=== PATIENT | male | born 1965 | race Caucasian/White ===

== ENCOUNTER 2023-03-05 01:21 | Observation (INO) | payer BC ==
--- NOTE | 2023-03-05 01:27 | ED ---
Recheck HPI - General Stated Complaint: Abdominal pain Time Seen by Provider: 03/05/23 01:24 Source: RN notes reviewed, old records reviewed Mode of arrival: EMS Limitations: no limitations - History of Present Illness Initial Comments: This is a 58-year-old male to the emergency department for evaluation of severe abdominal pain. Patient Dese for evaluation of abdominal pain here in the emergency room with nausea vomiting persistent nausea vomiting here, patient has no fever, no chest pain or shortness of breath, patient is accepted in transfer from outside facility for chronic and uncontrolled abdominal pain secondary to pancreatitis MD Complaint: abnormal lab -: unknown Returns Today for: Called Because of Abnormal Lab/Test, persistent/worsening pain related to initial visit Symptoms Since Prior Visit: worsening pain Associated Symptoms: none, abdominal pain Treatments Prior to Arrival: Given Pain Meds on - Related Data Home Medications Medication Instructions Recorded Confirmed Doxazosin [Cardura] 1 mg PO HS 03/05/23 03/05/23 HYDROcodone/APAP 7.5-325MG [[place] 1 tab PO Q6HR PRN 03/05/23 03/05/23 7.5-325] Lactulose [Cephulac] 20 gm PO TID PRN 03/05/23 03/05/23 Loratadine [Claritin] 10 mg PO DAILY 03/05/23 03/05/23 Ondansetron Odt [Zofran Odt] 4 mg PO Q8HR PRN 03/05/23 03/05/23 Pantoprazole [Protonix] 40 mg PO DAILY 03/05/23 03/05/23 amLODIPine [Norvasc] 5 mg PO DAILY 03/05/23 03/05/23 fentaNYL 50MCG/HR PATCH [Duragesic 1 patch TRANSDERM Q72H 03/05/23 03/05/23 50MCG/HR] traZODone HCL 100 mg PO HS 03/05/23 03/05/23 Allergies Allergy/AdvReac Type Severity Reaction Status Date / Time No Known Allergies Allergy Verified 03/05/23 07:26 Review of Systems ROS Statement: Those systems with pertinent positive or pertinent negative responses have been documented in the HPI. ROS Other: All systems not noted in ROS Statement are negative. General Exam General appearance: alert, in no apparent distress, anxious Head exam: Present: atraumatic, normocephalic, normal inspection Eye exam: Present: normal appearance, PERRL, EOMI. Absent: scleral icterus, conjunctival injection, periorbital swelling ENT exam: Present: normal exam, mucous membranes moist Neck exam: Present: normal inspection. Absent: tenderness, meningismus, lymphadenopathy Respiratory exam: Present: normal lung sounds bilaterally. Absent: respiratory distress, wheezes, rales, rhonchi, stridor Cardiovascular Exam: Present: regular rate, normal rhythm, normal heart sounds. Absent: systolic murmur, diastolic murmur, rubs, gallop, clicks GI/Abdominal exam: Present: soft, normal bowel sounds. Absent: distended, tenderness, guarding, rebound, rigid Extremities exam: Present: normal inspection, full ROM, normal capillary refill. Absent: tenderness, pedal edema, joint swelling, calf tenderness Back exam: Present: normal inspection Neurological exam: Present: alert, oriented X3, CN II-XII intact Psychiatric exam: Present: normal affect, normal mood Skin exam: Present: warm, dry, intact, normal color. Absent: rash Course Vital Signs 03/05/23 03/05/23 03/05/23 01:22 01:37 02:00 Temperature 97.6 F Pulse Rate 47 L 48 L 50 L Pulse Rate [ Pulse Oximetery ] Respiratory 16 14 14 Rate Blood Pressure 178/86 178/86 166/94 Blood Pressure [Right Arm Supine] O2 Sat by Pulse 96 95 97 Oximetry 03/05/23 03/05/23 03/05/23 04:00 05:00 06:00 Temperature Pulse Rate 48 L 45 L 42 L Pulse Rate [ Pulse Oximetery ] Respiratory 14 14 12 Rate Blood Pressure 176/96 171/95 159/85 Blood Pressure [Right Arm Supine] O2 Sat by Pulse 100 97 97 Oximetry 03/05/23 03/05/23 03/05/23 07:55 09:28 09:45 Temperature 97.6 F Pulse Rate 57 L Pulse Rate [ 43 L Pulse Oximetery ] Respiratory 16 18 Rate Blood Pressure 138/71 Blood Pressure 166/77 [Right Arm Supine] O2 Sat by Pulse 98 97 Oximetry - Reevaluation(s) Reevaluation #1: 03/05/23 01:59 Medical records reviewed Transfer paperwork is reviewed Reevaluation #2: 03/05/23 01:59 Patient has adequate pain control Reevaluation #3: 03/05/23 01:59 Patient informed results questions answered Reevaluation #4: 03/05/23 01:58 Was pt. sent in by a medical professional or institution ([facility], [facility], urgent care, hospital, or snf...) When possible be specific @ -no Did you speak to anyone other than the patient for history (EMS, parent, family, police, friend...)? What history was obtained from this source @ -no Did you review nursing and triage notes (agree or disagree)? Why? @ -agree Are old charts reviewed (outside hosp., previous admission, EMS record, old EKG, old radiological studies, urgent care reports/EKG's, snf records)? Report findings @ -yes Differential Diagnosis (chest pain, altered mental status, abdominal pain women, abdominal pain men, vaginal bleeding, weakness, fever, dyspnea, syncope, headache, dizziness, GI bleed, back pain, seizure, CVA, palpatations, mental health, musculoskeletal)? @ -prior EKG interpreted by me (3pts min.). @ -yes X-rays interpreted by me (1pt min.). @ -no CT interpreted by me (1pt min.). @ -no U/S interpreted by me (1pt. min.). @ -no What testing was considered but not performed or refused? (CT, X-rays, U/S, labs)? Why? @ -none What meds were considered but not given or refused? Why? @ -none Did you discuss the management of the patient with other professionals (professionals i.e. [facility], [employer], lab, RT, psych nurse, director social, ornamenter hand, teacher, house officer, supervisor case loading)? Give summary @ -no Was smoking cessation discussed for >3mins.? @ -no Was critical care preformed (if so, how long)? @ -no Were there social determinants of health that impacted care today? How? (Homelessness, low income, unemployed, alcoholism, drug addiction, transportation, low edu. Level, literacy, decrease access to med. care, custodial, rehab)? @ -none Was there de-escalation of care discussed even if they declined (Discuss DNR or withdrawal of care, Hospice)? DNR status @ -no What co-morbidities impacted this encounter? (DM, HTN, Smoking, COPD, CAD, Cancer, CVA, ARF, Chemo, Hep., AIDS, mental health diagnosis, sleep apnea, morbid obesity)? @ -none Was patient admitted / discharged? Hospital course, mention meds given and route, prescriptions, significant lab abnormalities, going to OR and other pertinent info. @ - 58 male to the emergency department for evaluation of severe abdominal pain. Patient is transferred for inpatient evaluation regarding pancreatitis history of pancreatitis secondary to alcoholism, patient does have CT positive for pancreatic pseudocyst unchanged, patient has persistent abdominal pain here in the urine will admit for pain control Admitted Undiagnosed new problem with uncertain prognosis? @ -no Drug Therapy requiring intensive monitoring for toxicity (Heparin, Nitro, Insulin, Cardizem)? @ -no Were any procedures done? @ -no Diagnosis/symptom? @ -Acute pancreatitis Acute, or Chronic, or Acute on Chronic? @ -Acute Uncomplicated (without systemic symptoms) or Complicated (systemic symptoms)? @ -Complicated Side effects of treatment? @ -no Exacerbation, Progression, or Severe Exacerbation? @ -exacerbation Poses a threat to life or bodily function? How? (Chest pain, [place], [place], pneumonia, PE, COPD, DKA, ARF, appy, cholecystitis, CVA, Diverticulitis, Homicidal, Suicidal, threat to staff... and all critical care pts) @ -yes with severe abdominal pain and pancreatitis Reevaluation #5: 03/05/23 01:59 Differential Abdominal Pain Men: Appendicitis, cholecystitis, diverticulosis, ischemic bowel, pancreatitis, hepatitis, UTI, gastroenteritis, AAA, incarcerated hernia, bowel obstruction, constipation, inflammatory bowel, hepatitis, peptic ulcer disease, splenic infarction, perforated viscus, testicular torsion, this is not meant to be an all-inclusive list - Consultations Consultation #1: spoke w the [facility] who agrees to admit this patient Medical Decision Making - Medical Decision Making 58 male to the emergency department for evaluation of severe abdominal pain. Patient is transferred for inpatient evaluation regarding pancreatitis history of pancreatitis secondary to alcoholism, patient does have CT positive for pancreatic pseudocyst unchanged, patient has persistent abdominal pain here in the urine will admit for pain control - Lab Data Result diagrams: 03/05/23 02:32 03/05/23 02:32 - EKG Data -: EKG Interpreted by Me (EKG is sinus bradycardia 43 [place] 165 QRS 129 QTC 447) - Radiology Data Radiology results: pending (Ultrasound gallbladder is pending), report reviewed (Outside CT does show pancreatic pseudocysts and chronic pancreatitis) Disposition Clinical Impression: Abdominal pain, Pancreatitis, Recurrent pancreatitis Disposition: ADMITTED IP TO THIS [facility] Condition: Fair Is patient prescribed a controlled substance at d/c from ED?: No Time of Disposition: 02:00
[2023-03-05] MEDS ORDERED: MORPHINE SULFATE 4 MG/ML SYRINGE IV PRN (01:59)
[2023-03-05] MEDS ORDERED: MORPHINE SULFATE 4 MG/ML SYRINGE IV STA (01:59)
[2023-03-05] MEDS ORDERED: ONDANSETRON 4 MG/2 ML VIAL IVP STA (01:59)
[2023-03-05] MEDS ORDERED: SODIUM CHLORIDE 0.9% 1,000 ML IV STA ×2 (01:59)
[2023-03-05] MEDS ORDERED: NALOXONE 0.4 MG/ML 1 ML VIAL IV PRN (01:59)
[2023-03-05] MEDS ORDERED: ONDANSETRON 4 MG/2 ML VIAL IVP PRN (01:59)
[2023-03-05] MEDS: SODIUM CHLORIDE 0.9% 1,000 ML IV SCH ×2 (02:10→13:51)
[2023-03-05 02:51] LABS: Anisocytosis Slight; Basophils % (A) 0 %; Eosinophils # (A) 0.2 k/uL (0-0.7); Eosinophils % (A) 3 %; HGB 16.1 gm/dL (13.0-17.5); Lymphocytes # (A) 1.1 k/uL (1.0-4.8); Lymphocytes % (A) 15 %; MCH 26.8 pg (25.0-35.0); MCHC 32.1 g/dL (31.0-37.0); MCV 83.5 fL (80.0-100.0); Mean Platelet Volume 8.4; Monocytes # (A) 0.6 k/uL (0-1.0); Monocytes % (A) 8 %; Neutrophils # (A) 5.3 k/uL (1.3-7.7); Neutrophils % (A) 70 %; Platelet Count 304 k/uL (150-450); RBC 5.99 m/uL (4.30-5.90); RDW 17.8 % (11.5-15.5); WBC 7.6 k/uL (3.8-10.6)
[2023-03-05 02:58] LABS: INR 1.1 (<1.2); Partial Thromboplastin Time 27.4 sec (22.0-30.0); Prothrombin Time 12.2 sec (10.0-12.5)
[2023-03-05 03:12] LABS: ALT 31 U/L (4-49); AST 40 U/L (17-59); African American GFR (CKD) >90 (>60 ml/min/1.73 sqM); Albumin 3.5 g/dL (3.5-5.0); Alkaline Phosphatase 164 U/L (38-126); Anion Gap 11 mmol/L; Blood Urea Nitrogen 12 mg/dL (9-20); Calcium 8.8 mg/dL (8.4-10.2); Carbon Dioxide 23 mmol/L (22-30); Chloride 104 mmol/L (98-107); Glucose 98 mg/dL (74-99); Magnesium 1.7 mg/dL (1.6-2.3); Non-African American GFR(CKD) 85 (>60 ml/min/1.73 sqM); Phosphorus 3.5 mg/dL (2.5-4.5); Sodium 138 mmol/L (137-145); Total Bilirubin 0.5 mg/dL (0.2-1.3); Total Protein 6.3 g/dL (6.3-8.2)
[2023-03-05 03:20] LABS: NT-Pro-B-Type Natriuretic Pept 401 pg/mL
--- NOTE | 2023-03-05 07:56 | US ---
EXAMINATION TYPE: US gallbladder DATE OF EXAM: 03/05/2023 COMPARISON: NONE CLINICAL INDICATION: Male, 58 years old with history of pain; Abdominal pain, pancreatitis TECHNIQUE: Multiple sonographic images of the right upper quadrant are obtained. FINDINGS: EXAM MEASUREMENTS: Liver Length: 19.0 cm Gallbladder Wall: 0.3 cm CBD: 0.8 cm Right Kidney: 11.8 x 5.1 x 4.8 cm Pancreas: anechoic areas noted within area of pancreas = 5.6 x 6.0 x 5.0cm and 5.7 x 4.3 x 4.7cm Liver: intrahepatic ducts appear dilated Gallbladder: upper limits of normal in size = 10.0 cm, low echoes layering dependently suggestive of biliary debris. Evidence for sonographic Oneill's sign: no CBD: dilated Right Kidney: no evidence of hydronephrosis IMPRESSION: 1. Distended gallbladder measuring up to 10 cm. There suggestive of layering biliary debris. No evid ence for acute cholecystitis. 2. Pancreatic cysts which could represent sequela of pancreatitis.
[2023-03-05] MEDS: PANTOPRAZOLE 40 MG/10 ML VIAL IV SCH (07:58)
[2023-03-05] MEDS ORDERED: ACETAMINOPHEN TAB 325 MG TAB PO PRN (09:16)
[2023-03-05] MEDS ORDERED: MAG HYDROX/AL HYDROX/SIMETH 30 ML CUP PO PRN (09:16)
[2023-03-05] MEDS ORDERED: MORPHINE SULFATE 2 MG/ML SYRINGE IV PRN (09:19)
[2023-03-05] MEDS: amLODIPine 5 MG TAB PO SCH (09:29)
[2023-03-05] MEDS: LORATADINE 10 MG TAB PO SCH (09:29)
[2023-03-05] MEDS ORDERED: PANTOPRAZOLE 40 MG TABLET PO SCH (09:30)
--- NOTE | 2023-03-05 11:53 | P.GSCN ---
History of Present Illness Consult date: 03/05/23 History of present illness: CHIEF COMPLAINT: abdominal pain HISTORY OF PRESENT ILLNESS: This is a 4-year-old male who presents with complaints of severe abdominal pain in the epigastric area and right upper quadrant area that radiates to the upper back over the last month. He reports that the pain increased yesterday. Patient has a known history of chronic pancreatitis secondary to alcoholism. Also history of pancreatic pseudocyst. Patient reports that his last alcoholic beverage was over 10 months ago. He reports having a recent hospitalization last month for pancreatitis. Patient reports that symptoms improve and then a few days later. He denies any nausea or vomiting. Denies any fever chills or sweats. He was initially at outside hospital where he had a computed tomography scan that had shown evidence of pancreatic pseudocyst unchanged and pancreatitis per ER charting. CAT scan is not available to me. Patient transferred to [facility] for surgical evaluation and GI evaluation. Patient had gallbladder ultrasound completed the head showed distended gallbladder measuring up to 10 cm. There is suggestive of layering biliary debris. No evidence for acute cholecystitis. PAST MEDICAL HISTORY: History of kidney cancer with left nephrectomy. History of lung cancer last chemotherapy 2 months ago, hypertension PAST SURGICAL HISTORY: Left nephrectomy MEDICATIONS: See below ALLERGIES: See below SOCIAL HISTORY: No illicit drug use. REVIEW OF SYSTEMS: CONSTITUTIONAL: Denies fever or chills. HEENT: Denies blurred vision, vision changes, or eye pain. Denies hemoptysis CARDIOVASCULAR: Denies chest pain or pressure. RESPIRATORY: No shortness of breath. GASTROINTESTINAL: See HPI for pertinent findings HEMATOLOGIC: Denies bleeding disorders. GENITOURINARY: Denies any blood in urine or increased urinary frequency. SKIN: Denies pruitis. Denies rash. PHYSICAL EXAM: VITAL SIGNS: Reviewed GENERAL: Well-developed in no acute distress. HEENT: No sclera icterus. Extraocular movements grossly intact. Moist buccal mucosa. Head is atraumatic, normocephalic. No nasal drainage. ABDOMEN: Soft. Nondistended. Tenderness to palpation epigastric and right upper quadrant area NEUROLOGIC: Alert and oriented. Cranial nerves II through XII grossly intact. LABORATORY DATA: WBC 7.6 HGB 16.1 Plt 304 Na 138 K 4.0 Cr 0.97 Lactic acid 0.8 Total bili 0.5 AST 40 ALT 31 alk phos 164 lipase pending IMAGING: Gallbladder ultrasound reports distended gallbladder measuring up to 10 cm. Suggestive of layering biliary debris. No evidence for acute cholecystitis ASSESSMENT: 1. Distended gallbladder and biliary debris noted on abdominal ultrasound 2. Acute on chronic pancreatitis 3. History of alcoholism. Patient has not had alcohol beverage for over 10 months 4. Pancreatic pseudocyst PLAN: -Patient scheduled for laparoscopic cholecystectomy today with Dr. Love -Keep patient nothing by mouth -Continue IV fluids -Continue supportive care Physician Boat Hoist Operator note has been reviewed by physician. Signing provider agrees with the documented findings, assessment, and plan of care. Past Medical History Additional Past Medical History / Comment(s): adenocarcinoma, arthritis, cholelithiasis ETOH abuse skin CA pancreatitis renal cell carcinoma left kidney History of Any Multi-Drug Resistant Organisms: None Reported Past Surgical History: Appendectomy Additional Past Surgical History / Comment(s): Kidney removed 2020 Past Psychological History: No Psychological Hx Reported Smoking Status: Current every day smoker Past Alcohol Use History: None Reported Past Drug Use History: None Reported Medications and Allergies Home Medications Medication Instructions Recorded Confirmed Type Doxazosin [Cardura] 1 mg PO HS 03/05/23 03/05/23 History HYDROcodone/APAP 7.5-325MG [[place] 1 tab PO Q6HR PRN 03/05/23 03/05/23 History 7.5-325] Lactulose [Cephulac] 20 gm PO TID PRN 03/05/23 03/05/23 History Loratadine [Claritin] 10 mg PO DAILY 03/05/23 03/05/23 History Ondansetron Odt [Zofran Odt] 4 mg PO Q8HR PRN 03/05/23 03/05/23 History Pantoprazole [Protonix] 40 mg PO DAILY 03/05/23 03/05/23 History amLODIPine [Norvasc] 5 mg PO DAILY 03/05/23 03/05/23 History fentaNYL 50MCG/HR PATCH [Duragesic 1 patch TRANSDERM Q72H 03/05/23 03/05/23 History 50MCG/HR] traZODone HCL 100 mg PO HS 03/05/23 03/05/23 History Allergies Allergy/AdvReac Type Severity Reaction Status Date / Time No Known Allergies Allergy Verified 03/05/23 07:26 Surgical - Exam Vital Signs Temp Pulse Resp BP Pulse Ox 97.6 F 47 L 16 178/86 96 03/05/23 01:22 03/05/23 01:22 03/05/23 01:22 03/05/23 01:22 03/05/23 01:22 Results - Labs 03/05/23 02:32 03/05/23 02:32 Abnormal Lab Results - Last 24 Hours (Table) 03/05/23 03/05/23 Range/Units 02:32 02:32 RBC 5.99 H (4.30-5.90) m/uL RDW 17.8 H (11.5-15.5) % Alkaline Phosphatase 164 H (38-126) U/L Diabetes panel 03/05/23 Range/Units 02:32 Sodium 138 (137-145) mmol/L Potassium 4.0 (3.5-5.1) mmol/L Chloride 104 (98-107) mmol/L Carbon Dioxide 23 (22-30) mmol/L BUN 12 (9-20) mg/dL Creatinine 0.97 (0.66-1.25) mg/dL Glucose 98 (74-99) mg/dL Calcium 8.8 (8.4-10.2) mg/dL AST 40 (17-59) U/L ALT 31 (4-49) U/L Alkaline Phosphatase 164 H (38-126) U/L Total Protein 6.3 (6.3-8.2) g/dL Albumin 3.5 (3.5-5.0) g/dL Calcium panel 03/05/23 Range/Units 02:32 Calcium 8.8 (8.4-10.2) mg/dL Phosphorus 3.5 (2.5-4.5) mg/dL Albumin 3.5 (3.5-5.0) g/dL Pituitary panel 03/05/23 Range/Units 02:32 Sodium 138 (137-145) mmol/L Potassium 4.0 (3.5-5.1) mmol/L Chloride 104 (98-107) mmol/L Carbon Dioxide 23 (22-30) mmol/L BUN 12 (9-20) mg/dL Creatinine 0.97 (0.66-1.25) mg/dL Glucose 98 (74-99) mg/dL Calcium 8.8 (8.4-10.2) mg/dL Adrenal panel 03/05/23 Range/Units 02:32 Sodium 138 (137-145) mmol/L Potassium 4.0 (3.5-5.1) mmol/L Chloride 104 (98-107) mmol/L Carbon Dioxide 23 (22-30) mmol/L BUN 12 (9-20) mg/dL Creatinine 0.97 (0.66-1.25) mg/dL Glucose 98 (74-99) mg/dL Calcium 8.8 (8.4-10.2) mg/dL Total Bilirubin 0.5 (0.2-1.3) mg/dL AST 40 (17-59) U/L ALT 31 (4-49) U/L Alkaline Phosphatase 164 H (38-126) U/L Total Protein 6.3 (6.3-8.2) g/dL Albumin 3.5 (3.5-5.0) g/dL
--- NOTE | 2023-03-05 12:50 | P.HPIM ---
History of Present Illness H&P Date: 03/05/23 Chief Complaint: Abdominal pain * 58-year-old gentleman with past medical history significant for alcohol use disorder, history of pancreatitis presents to the emergency department with complains of severe abdominal pain, nausea, vomiting. Patient had intractable vomiting and was transferred from an outside facility for uncontrolled abdominal discomfort secondary to pancreatitis. Workup done at outside hospital included serum chemistry as well as CT abdomen pelvis which showed pancreatic pseudocyst which was unchanged. * Workup obtained in ER included serum chemistry which shows sodium 138 potassium 4 BUNs 12 creatinine 0.97 liver chemistry AST 48 DT 31 alkaline phos phatase 164 * Ultrasound abdomen was obtained which showed dilated intrahepatic duct, distended gallbladder with biliary debris noted, Oneill's sign negative * While in ER patient was given 1 dose of morphine, Zofran as well as 1 L fluid bolus * Patient admitted to medical floor with consultation from general surgery as well as gastroenterology REVIEW OF SYSTEMS: Nausea, vomiting, abdominal pain CONSTITUTIONAL: No fever, no malaise, no fatigue. HEENT: No recent visual problems or hearing problems. Denied any sore throat. CARDIOVASCULAR: No chest pain, orthopnea, PND, no palpitations, no syncope. PULMONARY: No shortness of breath, no cough, no hemoptysis. GASTROINTESTINAL: Nausea, vomiting, abdominal pain NEUROLOGICAL: No headaches, no weakness, no numbness. HEMATOLOGICAL: Denies any bleeding or petechiae. GENITOURINARY: Denies any burning micturition, frequency, or urgency. MUSCULOSKELETAL/RHEUMATOLOGICAL: Denies any joint pain, swelling, or any muscle pain. ENDOCRINE: Denies any polyuria or polydipsia. The rest of the 14-point review of systems is negative. PHYSICAL EXAMINATION: GENERAL: The patient is alert and oriented x3, ill appearance, place and distress HEENT: Pupils are round and equally reacting to light. EOMI. CARDIOVASCULAR: S1 and S2 present. No murmurs, rubs, or gallops. PULMONARY: Chest is clear to auscultation, no wheezing or crackles. ABDOMEN: Soft, epigastric tenderness, right upper quadrant tenderness MUSCULOSKELETAL: No joint swelling or deformity. EXTREMITIES: No cyanosis, clubbing, or pedal edema. NEUROLOGICAL: Gross neurological examination did not reveal any focal deficits. SKIN: No rashes. Past Medical History Additional Past Medical History / Comment(s): adenocarcinoma, arthritis, cholelithiasis ETOH abuse skin CA pancreatitis renal cell carcinoma left kidney History of Any Multi-Drug Resistant Organisms: None Reported Past Surgical History: Appendectomy Additional Past Surgical History / Comment(s): Kidney removed 2020 Past Psychological History: No Psychological Hx Reported Smoking Status: Current every day smoker Past Alcohol Use History: None Reported Past Drug Use History: None Reported Medications and Allergies Home Medications Medication Instructions Recorded Confirmed Type Doxazosin [Cardura] 1 mg PO HS 03/05/23 03/05/23 History HYDROcodone/APAP 7.5-325MG [[place] 1 tab PO Q6HR PRN 03/05/23 03/05/23 History 7.5-325] Lactulose [Cephulac] 20 gm PO TID PRN 03/05/23 03/05/23 History Loratadine [Claritin] 10 mg PO DAILY 03/05/23 03/05/23 History Ondansetron Odt [Zofran Odt] 4 mg PO Q8HR PRN 03/05/23 03/05/23 History Pantoprazole [Protonix] 40 mg PO DAILY 03/05/23 03/05/23 History amLODIPine [Norvasc] 5 mg PO DAILY 03/05/23 03/05/23 History fentaNYL 50MCG/HR PATCH [Duragesic 1 patch TRANSDERM Q72H 03/05/23 03/05/23 History 50MCG/HR] traZODone HCL 100 mg PO HS 03/05/23 03/05/23 History Allergies Allergy/AdvReac Type Severity Reaction Status Date / Time No Known Allergies Allergy Verified 03/05/23 07:26 Physical Exam Vitals: Vital Signs Temp Pulse Resp BP BP Pulse Ox 03/05/23 07:55 97.6 F 16 166/77 98 03/05/23 06:00 42 L 12 159/85 97 03/05/23 05:00 45 L 14 171/95 97 03/05/23 04:00 48 L 14 176/96 100 03/05/23 02:00 50 L 14 166/94 97 03/05/23 01:37 48 L 14 178/86 95 03/05/23 01:22 97.6 F 47 L 16 178/86 96 Intake and Output 03/04/23 03/05/23 03/05/23 22:59 06:59 14:59 Output Total 900 Balance -900 Output: Urine 900 Other: Weight 64.864 kg Results CBC & Chem 7: 03/05/23 02:32 03/05/23 02:32 Labs: Abnormal Lab Results - Last 24 Hours (Table) 03/05/23 03/05/23 Range/Units 02:32 02:32 RBC 5.99 H (4.30-5.90) m/uL RDW 17.8 H (11.5-15.5) % Alkaline Phosphatase 164 H (38-126) U/L Assessment and Plan Assessment: Assessment and plan * acute pancreatitis on chronic pancreatitis with pancreatic pseudocyst * Intractable nausea/vomiting from acute pancreatitis * Alcohol use disorder * Hypertension * Gastroesophageal reflux disease * In regards to acute pancreatitis, patient already had CT completed at outside facility, ultrasound abdomen reviewed, general surgery/gastroenterology consulted will repeat CT if no improvement in symptoms noted * Follow-up on lipase levels, comprehensive metabolic panel * In regards to nausea and vomiting continue patient on Zofran, continue fluid resuscitation * In regards to hypertension continue amlodipine * In regards to alcohol use, monitor for withdrawal * In regards to gastric physical reflux disease continue patient on Protonix * Status is full code Time with Patient: Greater than 30
[2023-03-05] MEDS: oxyCODONE-APAP 5-325MG 1 EACH TAB PO PRN ×2 (14:11→22:19)
--- NOTE | 2023-03-05 15:28 | P.CONS ---
History of Present Illness - Reason for Consult Consult date: 03/05/23 Pancreatitis Requesting physician: Jt Macias - Chief Complaint Abdominal pain - History of Present Illness This is a pleasant 58-year-old male with a history of lung cancer and recurrent pancreatitis. Patient states that he was first diagnosed about 2 years ago with alcohol-induced pancreatitis. States at that time he was drinking a pint to a fifth a day states that he was drinking for 15-20 years and quit about a year ago. He he states that he has been recently hospitalized at least 4 times within the last 1-2 months at [facility] for abdominal pain and pancreatitis. He's been following with oncology and was on chemotherapy which they stopped about 2 months ago due to recurrent pancreatitis he was then transitioned to immunotherapy which they stopped about a week ago because again he was having recurrent pancreatitis patient states. Sounds like possible medication induced pancreatitis. He had a ultrasound of the gallbladder during this hospitalization and that did report distended gallbladder measuring up to 10 cm. Suggestive of layering biliary debris. No evidence for acute cholecystitis. Pancreatic cyst which could represent sequela of pancreatitis. LFTs are all normal. Reported abdominal pain in the epigastric and right upper quadrant. No nausea or vomiting at this time. Gen. surgery following enhanced patient scheduled for cholecystectomy. Patient denies any fevers or chills. No body aches, shortness of breath or chest pain Review of Systems REVIEW OF SYSTEMS: CARDIOPULMONARY: No chest pain, some mild shortness of breath. Gastrointestinal: Epigastric and right upper quadrant pain. No nausea or vomiting. No hematemesis, coffee-ground emesis. No rectal bleeding, or melena. GENITOURINARY: No dysuria or hematuria. MUSCULOSKELETAL: Reports normal range of motion. SKIN: No rashes. No jaundice. ENDOCRINE: No chills, fevers. No excessive weight gain or loss. No polydipsia or polyuria. PSYCHIATRIC: Unremarkable. NEUROLOGY: No change in mental status. Denies dizziness, headache. ENT: Vision unremarkable. CONSTITUTIONAL: No recent weight loss. No fever, chills, night sweats. Past Medical History Additional Past Medical History / Comment(s): adenocarcinoma, arthritis, cholelithiasis ETOH abuse skin CA pancreatitis renal cell carcinoma left kidney History of Any Multi-Drug Resistant Organisms: None Reported Past Surgical History: Appendectomy Additional Past Surgical History / Comment(s): Kidney removed 2020 Past Psychological History: No Psychological Hx Reported Smoking Status: Current every day smoker Past Alcohol Use History: None Reported Past Drug Use History: None Reported Medications and Allergies Home Medications Medication Instructions Recorded Confirmed Type Doxazosin [Cardura] 1 mg PO HS 03/05/23 03/05/23 History HYDROcodone/APAP 7.5-325MG [[place] 1 tab PO Q6HR PRN 03/05/23 03/05/23 History 7.5-325] Lactulose [Cephulac] 20 gm PO TID PRN 03/05/23 03/05/23 History Loratadine [Claritin] 10 mg PO DAILY 03/05/23 03/05/23 History Ondansetron Odt [Zofran Odt] 4 mg PO Q8HR PRN 03/05/23 03/05/23 History Pantoprazole [Protonix] 40 mg PO DAILY 03/05/23 03/05/23 History amLODIPine [Norvasc] 5 mg PO DAILY 03/05/23 03/05/23 History fentaNYL 50MCG/HR PATCH [Duragesic 1 patch TRANSDERM Q72H 03/05/23 03/05/23 History 50MCG/HR] traZODone HCL 100 mg PO HS 03/05/23 03/05/23 History Allergies Allergy/AdvReac Type Severity Reaction Status Date / Time No Known Allergies Allergy Verified 03/05/23 07:26 Physical Exam Vitals: Vital Signs Temp Pulse Resp BP BP Pulse Ox 03/05/23 09:28 57 L 18 138/71 97 03/05/23 07:55 97.6 F 16 166/77 98 03/05/23 06:00 42 L 12 159/85 97 03/05/23 05:00 45 L 14 171/95 97 03/05/23 04:00 48 L 14 176/96 100 03/05/23 02:00 50 L 14 166/94 97 03/05/23 01:37 48 L 14 178/86 95 03/05/23 01:22 97.6 F 47 L 16 178/86 96 Intake and Output 03/04/23 03/05/23 03/05/23 22:59 06:59 14:59 Output Total 900 Balance -900 Output: Urine 900 Other: Weight 64.864 kg General appearance: The patient is alert, oriented, appears in no acute distress. HET: Head is normocephalic and atraumatic. Conjunctiva pink. Sclera anicteric. Neck: Supple without lymphadenopathy. Trachea midline. Heart: Regular. Lungs: Equal expansion, normal respiratory effort. Abdomen: Soft, right upper quadrant and epigastric tenderness with palpation, nondistended. No guarding or rigidity. Skin: No rashes. No jaundice. Extremities: Normal skin color and turgor. No pedal edema. Neurological: No focal deficits. Alert and oriented x3. Results CBC & Chem 7: 03/05/23 02:32 12 02:32 Labs: Abnormal Lab Results - Last 24 Hours (Table) 03/05/23 03/05/23 Range/Units 02:32 02:32 RBC 5.99 H (4.30-5.90) m/uL RDW 17.8 H (11.5-15.5) % Alkaline Phosphatase 164 H (38-126) U/L Comments: ultrasound of the gallbladder during this hospitalization and that did report distended gallbladder measuring up to 10 cm. Suggestive of layering biliary debris. No evidence for acute cholecystitis. Pancreatic cyst which could represent sequela of pancreatitis. Assessment and Plan (1) Recurrent pancreatitis Narrative/Plan: 4-year-old male with a history of pancreatitis first diagnosed about 2 years ago which she states was alcohol induced. He states that he has had multiple recurrences of pancreatitis over the last 2 years. He states at least 10-12 times or more. He has been hospitalized for 4 times within last 1-2 months at [facility] in [place] for pancreatitis. Patient was diagnosed by a year and a half ago with lung cancer and started on chemotherapy which was stopped couple months ago as they thought pancreatitis may be recurrent due to c hemotherapy. He was then switched over to an oral immunotherapy which now was stopped about a week ago after his last hospitalization as they thought possible medication induced pancreatitis according to the patient. Records are currently not available. Patient did quit drinking about a year ago. LFTs are all normal. Unclear etiology of pancreatitis at this time, gallbladder does show some layering debris again however LFTs are all normal. Definitely could be medication induced pancreatitis or recurrent alcohol-induced pancreatitis. Will try to get most recent records from [facility] in [place]. Current Visit: Yes Status: Acute Code(s): [id number] - SNOMED Code(s): 190396813 (2) Abdominal pain Current Visit: Yes Status: Acute Code(s): R10.9 - UNSPECIFIED ABDOMINAL PAIN SNOMED Code(s): 49821618 Plan: 1. Continue symptomatic in spite of care 2. Continue aggressive IV hydration 3. Antiemetics as needed 4. Protonix 40 mg daily 5. Keep nothing by mouth 6. Stat lipase ordered 7. Please obtain records from [facility] as well as [facility] in [place] Thank you for this consultation, we will continue to follow Dr. Ahmet Tapia I agree with the dictator's note, documented as a scribe by Josette HERNANDEZ.
[2023-03-05] MEDS ORDERED: METOCLOPRAMIDE 5 MG/ML 2 ML VIAL ONE (16:00)
[2023-03-05] MEDS ORDERED: diphenhydrAMINE 50 MG/ML 1 ML VIAL ONE (16:00)
[2023-03-05] MEDS ORDERED: HEPARIN SODIUM,PORCINE/PF 5,000 UNIT/0.5 ML SYRINGE SQ ONE (16:14)
[2023-03-05] MEDS ORDERED: DEXAMETHASONE SOD PHOSPHATE 4 MG/ML 1 ML VIAL IVP ONE (16:15)
[2023-03-05] MEDS ORDERED: ONDANSETRON 4 MG/2 ML VIAL IVP ONE (16:15)
[2023-03-05] MEDS ORDERED: METOCLOPRAMIDE 5 MG/ML 2 ML VIAL IVP ONE (16:16)
[2023-03-05] MEDS ORDERED: diphenhydrAMINE 50 MG/ML 1 ML VIAL IVP ONE (16:17)
[2023-03-05] MEDS ORDERED: LACTATED RINGERS 1,000 ML IV ONE (16:18)
[2023-03-05] MEDS ORDERED: FAMOTIDINE 20 MG/2 ML VIAL IVP ONE (16:18)
[2023-03-05] MEDS ORDERED: HEPARIN SODIUM,PORCINE 5,000 UNIT/ML 1 ML VIAL SQ ONE (16:21)
[2023-03-05] MEDS ORDERED: NEOSTIGMINE 1 MG/ML 10 ML VIAL ONE (16:31)
[2023-03-05] MEDS ORDERED: ROCURONIUM 10 MG/ML (5 ML VIAL) IV ONE (16:31)
[2023-03-05] MEDS ORDERED: PROPOFOL 10 MG/ML 20 ML VIAL IV ONE (16:31)
[2023-03-05] MEDS ORDERED: fentaNYL (PF) 50 MCG/ML 2 ML AMP ONE (16:31)
[2023-03-05] MEDS ORDERED: GLYCOPYRROLATE 0.2 MG/ML 2 ML VIAL ONE (16:31)
[2023-03-05] MEDS ORDERED: LIDOCAINE 1% INJ 10MG/ML (20 ML MDV) ONE (16:31)
[2023-03-05] MEDS ORDERED: SUCCINYLCHOLINE CHLORIDE 200 MG/10 ML VIAL IV ONE (16:31)
[2023-03-05] MEDS ORDERED: BUPIVACAINE (PF) 0.25% 30 ML VIAL SQ ONE ×2 (16:32→16:51)
[2023-03-05] MEDS ORDERED: HYDROmorphone 1 MG/ML 1 ML SYRINGE IVP PRN (17:23)
--- NOTE | 2023-03-05 17:23 | P.OP ---
Date of Procedure: 03/05/23 Preoperative Diagnosis: Cholecystitis Postoperative Diagnosis: Acute cholecystitis Procedure(s) Performed: Laparoscopic cholecystectomy Anesthesia: FRAN Surgeon: Benjamin Love Estimated Blood Loss (ml): 5 Pathology: other (Gallbladder) Condition: stable Disposition: PACU Description of Procedure: The patient was placed on the operating table. The patient received a general endotracheal tube anesthesia. The patients abdomen was prepped and draped in the usual sterile fashion. Through an infraumbilical stab incision, the fascia of the anterior abdominal wall was grasped with a pair of Kochers and then the Veress needle was placed in the peritoneal cavity. Position of the Veress needle was confirmed with positive drop test. The abdomen was then insufflated. After adequate insufflation, the 10 mm trocar was placed in the peritoneal cavity. Following this the laparoscope was placed in the peritoneal cavity. The patient was placed in the head-up, right side up position and then a 5 mm trocar was placed in the right lateral and right subcostal pos ition under direct visualization. A 8 mm trocar was placed in the epigastric position. The gallbladder was grasped in the fundus and infundibulum. Traction on the gallbladder was placed in the lateral and the cephalad positions. The triangle of Calot was visualized.. The cystic duct was bluntly dissected until the union of the cystic duct and common bile duct was seen. A critical view of safety was achieved. The cystic duct was then divided and sealed with the Harmonic scissors. A PDS Endoloop was then placed throughout the cystic duct stump. The cystic artery divided and sealed with the Harmonic scissors. The gallbladder was then removed from the liver bed using Harmonic scissors. The gallbladder was then extracted through the epigastric port site. Operative field was checked for any bleeding spots and Harmonic scissors was used to coagulate the liver bed. The abdomen was irrigated. The trocars were removed. The skin was closed using interrupted 3-0 Vicryl suture. Dermabond dressing were applied. The patient tolerated the procedure well.
[2023-03-05] MEDS ORDERED: HYDROmorphone 0.5 MG/0.5 ML SYRINGE IVP ONE ×2 (17:38→17:51)
[2023-03-05] MEDS: traZODone HCL 100 MG TAB PO SCH (22:18)
[2023-03-05] MEDS: DOXAZOSIN 1 MG TAB PO SCH (22:18)
[2023-03-06] MEDS: SODIUM CHLORIDE 0.9% 1,000 ML IV SCH ×4 (00:04→21:33)
[2023-03-06 08:51] LABS: Basophils # (A) 0.03 X 10*3/uL (0.00-0.10); Basophils % (A) 0.4 %; Eosinophils # (A) 0.01 X 10*3/uL (0.04-0.35); Eosinophils % (A) 0.1 %; HCT 51.4 % (39.6-50.0); HGB 16.6 g/dL (13.0-17.0); Lymphocytes # (A) 0.96 X 10*3/uL (0.90-5.00); Lymphocytes % (A) 12.1 %; MCH 26.1 pg (27.0-32.0); MCHC 32.3 g/dL (32.0-37.0); MCV 80.9 FL (80.0-97.0); Mean Platelet Volume 10.3 FL (9.5-12.2); Monocytes # (A) 0.82 X 10*3/uL (0.20-1.00); Monocytes % (A) 10.3 %; NRBC Per 100 WBC 0 X 10*3/uL (0.00-0.01); Neutrophils # (A) 6.11 X 10*3/uL (1.80-7.70); Neutrophils % (A) 76.7 %; Platelet Count 325 X 10*3/uL (140-440); RBC 6.35 X 10*6/uL (4.40-5.60); RDW 20.1 % (11.5-14.5); WBC 7.96 X 10*3/uL (4.50-10.00)
[2023-03-06 08:52] LABS: ALT 25 U/L (10-49); AST 21 U/L (14-35); Albumin 3.6 g/dL (3.8-4.9); Albumin/Globulin Ratio 1.57 Ratio (1.60-3.17); Alkaline Phosphatase 156 U/L (41-126); BUN/Creat Ratio 8.36 Ratio (12.00-20.00); Blood Urea Nitrogen 9.2 mg/dL (9.0-27.0); Calcium 9.1 mg/dL (8.7-10.3); Carbon Dioxide 24.3 mmol/L (21.6-31.8); Chloride 105 mmol/L (96-109); Globulin 2.3 g/dL (1.6-3.3); Glucose 106 mg/dL (70-110); Lipase 34 U/L (14-60); Magnesium 1.5 mg/dL (1.5-2.4); Phosphorus 3.6 mg/dL (2.4-5.1); Potassium 4.5 mmol/L (3.5-5.5); Sodium 141 mmol/L (135-145); Total Bilirubin 0.5 mg/dL (0.3-1.2); Total Protein 5.9 g/dL (6.2-8.2)
[2023-03-06] MEDS: amLODIPine 5 MG TAB PO SCH (09:30)
[2023-03-06] MEDS: PANTOPRAZOLE 40 MG/10 ML VIAL IV SCH (09:30)
[2023-03-06] MEDS: LORATADINE 10 MG TAB PO SCH (09:30)
--- NOTE | 2023-03-06 11:17 | P.PN ---
Subjective Progress Note Date: 03/06/23 CHIEF COMPLAINT: Acute cholecystitis HISTORY OF PRESENT ILLNESS: Patient status post laparoscopic cholecystectomy. Pain is controlled. He is tolerating diet. He has been up and ambulating. He is having flatus. He is afebrile. He is stable for discharge. PHYSICAL EXAM: VITAL SIGNS: Reviewed. GENERAL: Well-developed in no acute distress. ABDOMEN: Soft. Nondistended. Incision sites clean dry and intact NEUROLOGIC: Alert and oriented. Cranial nerves II through XII grossly intact. ASSESSMENT: 1. Acute cholecystitis status post laparoscopic cholecystectomy PLAN: -Patient can be discharged from surgical standpoint -Patient can shower daily -Continue regular diet -Continue patient's home pain medication Physician Actionscript Developer note has been reviewed by physician. Signing provider agrees with the documented findings, assessment, and plan of care. Objective - Vital Signs Vital signs: Vital Signs Temp 98.5 F 03/06/23 07:24 Pulse 53 L 03/06/23 07:24 Resp 18 03/06/23 07:24 BP 104/73 03/06/23 07:24 Pulse Ox 96 03/06/23 07:24 FiO2 Intake & Output 03/05/23 03/06/23 03/06/23 18:59 06:59 18:59 Intake Total 900 Output Total 25 1500 Balance 875 -1500 Weight 64.864 kg Intake: IV 900 Output: Urine 1500 Estimated Blood Loss 25 Other: Voiding Method Toilet # Voids 3 - Labs CBC & Chem 7: 03/06/23 05:56 03/06/23 05:56 Labs: Abnormal Lab Results - Last 24 Hours (Table) 03/05/23 03/05/23 03/06/23 Range/Units 02:32 14:05 05:56 RBC 6.35 H (4.40-5.60) X 10*6/uL Hct 51.4 H (39.6-50.0) % MCH 26.1 L (27.0-32.0) pg RDW 20.1 H (11.5-14.5) % Eosinophils # 0.01 L (0.04-0.35) X 10*3/uL BUN/Creatinine Ratio (12.00-20.00) Ratio Alkaline Phosphatase (41-126) U/L Total Protein (6.2-8.2) g/dL Albumin (3.8-4.9) g/dL Albumin/Globulin Ratio (1.60-3.17) Ratio Lipase 88 H 308 H (14-60) U/L 03/06/23 Range/Units 05:56 RBC (4.40-5.60) X 10*6/uL Hct (39.6-50.0) % MCH (27.0-32.0) pg RDW (11.5-14.5) % Eosinophils # (0.04-0.35) X 10*3/uL BUN/Creatinine Ratio 8.36 L (12.00-20.00) Ratio Alkaline Phosphatase 156 H (41-126) U/L Total Protein 5.9 L (6.2-8.2) g/dL Albumin 3.6 L (3.8-4.9) g/dL Albumin/Globulin Ratio 1.57 L (1.60-3.17) Ratio Lipase (14-60) U/L
--- NOTE | 2023-03-06 12:57 | P.PN ---
Subjective Progress Note Date: 03/06/23 * 58-year-old gentleman with past medical history significant for alcohol use disorder, history of pancreatitis presents to the emergency department with complains of severe abdominal pain, nausea, vomiting. Patient had intractable vomiting and was transferred from an outside facility for uncontrolled abd ominal discomfort secondary to pancreatitis. Workup done at outside hospital included serum chemistry as well as CT abdomen pelvis which showed pancreatic pseudocyst which was unchanged. * Workup obtained in ER included serum chemistry which shows sodium 138 potassium 4 BUNs 12 creatinine 0.97 liver chemistry AST 48 DT 31 alkaline phosphatase 164 * Ultrasound abdomen was obtained which showed dilated intrahepatic duct, distended gallbladder with biliary debris noted, Oneill's sign negative * While in ER patient was given 1 dose of morphine, Zofran as well as 1 L fluid bolus * Patient admitted to medical floor with consultation from general surgery as well as gastroenterology * 03/06/2023: Patient seen and evaluated bedside, patient is postoperative day one status post cholecystectomy, patient does complain of abdominal distention, we'll continue to monitor for another 24 hours potential discharge home by tomorrow follow up on CBC and basic metabolic panel REVIEW OF SYSTEMS: Nausea, vomiting resolved, abdominal pain postoperative pain CONSTITUTIONAL: No fever, no malaise, no fatigue. HEENT: No recent visual problems or hearing problems. Denied any sore throat. CARDIOVASCULAR: No chest pain, orthopnea, PND, no palpitations, no syncope. PULMONARY: No shortness of breath, no cough, no hemoptysis. GASTROINTESTINAL: Nausea, vomiting, abdominal pain NEUROLOGICAL: No headaches, no weakness, no numbness. HEMATOLOGICAL: Denies any bleeding or petechiae. GENITOURINARY: Denies any burning micturition, frequency, or urgency. MUSCULOSKELETAL/RHEUMATOLOGICAL: Denies any joint pain, swelling, or any muscle pain. ENDOCRINE: Denies any polyuria or polydipsia. The rest of the 14-point review of systems is negative. PHYSICAL EXAMINATION: GENERAL: The patient is alert and oriented x3, ill appearance, place and distress HEENT: Pupils are round and equally reacting to light. EOMI. CARDIOVASCULAR: S1 and S2 present. No murmurs, rubs, or gallops. PULMONARY: Chest is clear to auscultation, no wheezing or crackles. ABDOMEN: Status post cholecystectomy, incision is intact, abdomen is distended, mild tenderness diffusely on palpation MUSCULOSKELETAL: No joint swelling or deformity. EXTREMITIES: No cyanosis, clubbing, or pedal edema. NEUROLOGICAL: Gross neurological examination did not reveal any focal deficits. SKIN: No rashes. Objective - Vital Signs Vital signs: Vital Signs Temp 98.5 F 03/06/23 07:24 Pulse 53 L 03/06/23 07:24 Resp 18 03/06/23 07:24 BP 104/73 03/06/23 07:24 Pulse Ox 96 03/06/23 07:24 FiO2 Intake & Output 03/05/23 03/06/23 03/06/23 18:59 06:59 18:59 Intake Total 900 Output Total 25 1500 Balance 875 -1500 Weight 64.864 kg Intake: IV 900 Output: Urine 1500 Estimated Blood Loss 25 Other: Voiding Method Toilet # Voids 3 - Labs CBC & Chem 7: 03/06/23 05:56 03/06/23 05:56 Labs: Abnormal Lab Results - Last 24 Hours (Table) 03/05/23 03/05/23 03/06/23 Range/Units 02:32 14:05 05:56 RBC 6.35 H (4.40-5.60) X 10*6/uL Hct 51.4 H (39.6-50.0) % MCH 26.1 L (27.0-32.0) pg RDW 20.1 H (11.5-14.5) % Eosinophils # 0.01 L (0.04-0.35) X 10*3/uL BUN/Creatinine Ratio (12.00-20.00) Ratio Alkaline Phosphatase (41-126) U/L Total Protein (6.2-8.2) g/dL Albumin (3.8-4.9) g/dL Albumin/Globulin Ratio (1.60-3.17) Ratio Lipase 88 H 308 H (14-60) U/L 03/06/23 Range/Units 05:56 RBC (4.40-5.60) X 10*6/uL Hct (39.6-50.0) % MCH (27.0-32.0) pg RDW (11.5-14.5) % Eosinophils # (0.04-0.35) X 10*3/uL BUN/Creatinine Ratio 8.36 L (12.00-20.00) Ratio Alkaline Phosphatase 156 H (41-126) U/L Total Protein 5.9 L (6.2-8.2) g/dL Albumin 3.6 L (3.8-4.9) g/dL Albumin/Globulin Ratio 1.57 L (1.60-3.17) Ratio Lipase (14-60) U/L Assessment and Plan Assessment: Assessment and plan * acute pancreatitis on chronic pancreatitis with pancreatic pseudocyst * Intractable nausea/vomiting with acute cholecystitis status post cholecystectomy * Alcohol use disorder * Hypertension * Gastroesophageal reflux disease * In regards to acute pancreatitis/acute cholecystitis, seen by general surgery status post cholecystectomy, continue patient on fluid resuscitation, continue regular diet, as needed pain medication as needed nausea medication. Ultrasound abdomen completed on admission revealed * In regards to nausea and vomiting continue patient on Zofran, continue fluid resuscitation * In regards to hypertension continue amlodipine * In regards to alcohol use, no suspicion forward all patient has not had a drink in 10 months * Initial discharge within the next 24 hours
--- NOTE | 2023-03-06 13:48 | P.PN ---
Subjective Progress Note Date: 03/06/23 Principal diagnosis: Pancreatitis This is a pleasant 58-year-old male with a history of lung cancer and recurrent pancreatitis. Patient states that he was first diagnosed about 2 years ago with alcohol-induced pancreatitis. States at that time he was drinking a pint to a fifth a day states that he was drinking for 15-20 years and quit about a year ago. He he states that he has been recently hospitalized at least 4 times within the last 1-2 months at [facility] for abdominal pain and pancreatitis. He's been following with oncology and was on chemotherapy which they stopped about 2 months ago due to recurrent pancreatitis he was then transitioned to immunotherapy which they stopped about a week ago because again he was having recurrent pancreatitis patient states. Sounds like possible medication induced pancreatitis. He had a ultrasound of the gallbladder during this hospitalization and that did report distended gallbladder measuring up to 10 cm. Suggestive of layering biliary debris. No evidence for acute cholecystitis. Pancreatic cyst which could represent sequela of pancreatitis. LFTs are all normal. Reported abdominal pain in the epigastric and right upper quadrant. No nausea or vomiting at this time. Gen. surgery following enhanced patient scheduled for cholecystectomy. Patient denies any fevers or chills. No body aches, shortness of breath or chest pain 03/06/2023 Patient seen and examined today as a follow-up. Patient's lipase finally did come back yesterday was mildly elevated at 308. Yesterday he underwent c holecystectomy with reported cholecystitis. Today states abdominal pain is improved. Denies any nausea or vomiting. He did have a regular breakfast. Total bilirubin 0.5 AST 21 ALT 25 alkaline phosphatase 156 Lipase 34. He is afebrile. Objective - Vital Signs Vital signs: Vital Signs Temp 98.5 F 03/06/23 07:24 Pulse 53 L 03/06/23 07:24 Resp 18 03/06/23 07:24 BP 104/73 03/06/23 07:24 Pulse Ox 96 03/06/23 07:24 FiO2 Intake & Output 03/05/23 03/06/23 03/06/23 18:59 06:59 18:59 Intake Total 900 Output Total 25 1500 Balance 875 -1500 Weight 64.864 kg Intake: IV 900 Output: Urine 1500 Estimated Blood Loss 25 Other: Voiding Method Toilet # Voids 3 - Exam General appearance: The patient is alert, oriented, appears in no acute distress. HET: Head is normocephalic and atraumatic. Conjunctiva pink. Sclera anicteric. Neck: Supple without lymphadenopathy. Abdomen: Soft, some mild surgical tenderness, incision sites with Steri-Strip. Nondistended. No guarding or rigidity. Extremities: Normal skin color and turgor. No pedal edema Skin: No rashes, no jaundice Neurological: No focal deficits. Alert and oriented. - Labs CBC & Chem 7: 03/06/23 05:56 03/06/23 05:56 Labs: Abnormal Lab Results - Last 24 Hours (Table) 03/05/23 03/05/23 03/06/23 Range/Units 02:32 14:05 05:56 RBC 6.35 H (4.40-5.60) X 10*6/uL Hct 51.4 H (39.6-50.0) % MCH 26.1 L (27.0-32.0) pg RDW 20.1 H (11.5-14.5) % Eosinophils # 0.01 L (0.04-0.35) X 10*3/uL BUN/Creatinine Ratio (12.00-20.00) Ratio Alkaline Phosphatase (41-126) U/L Total Protein (6.2-8.2) g/dL Albumin (3.8-4.9) g/dL Albumin/Globulin Ratio (1.60-3.17) Ratio Lipase 88 H 308 H (14-60) U/L 03/06/23 Range/Units 05:56 RBC (4.40-5.60) X 10*6/uL Hct (39.6-50.0) % MCH (27.0-32.0) pg RDW (11.5-14.5) % Eosinophils # (0.04-0.35) X 10*3/uL BUN/Creatinine Ratio 8.36 L (12.00-20.00) Ratio Alkaline Phosphatase 156 H (41-126) U/L Total Protein 5.9 L (6.2-8.2) g/dL Albumin 3.6 L (3.8-4.9) g/dL Albumin/Globulin Ratio 1.57 L (1.60-3.17) Ratio Lipase (14-60) U/L Assessment and Plan (1) Recurrent pancreatitis Narrative/Plan: 4-year-old male with a history of pancreatitis first diagnosed about 2 years ago which she states was alcohol induced. He states that he has had multiple recurrences of pancreatitis over the last 2 years. He states at least 10-12 times or more. He has been hospitalized for 4 times within last 1-2 months at [facility] in [place] for pancreatitis. Patient was diagnosed by a year and a half ago with lung cancer and started on chemotherapy which was stopped couple months ago as they thought pancreatitis may be recurrent due to chemotherapy. He was then switched over to an oral immunotherapy which now was stopped about a week ago after his last hospitalization as they thought possible medication induced pancreatitis according to the patient. Records are currently not available. Patient did quit drinking about a year ago. LFTs are all nor mal. Unclear etiology of pancreatitis at this time, gallbladder does show some layering debris again however LFTs are all normal. Definitely could be medication induced pancreatitis or recurrent alcohol-induced pancreatitis. Will try to get most recent records from [facility] in [place]. Current Visit: Yes Status: Acute Code(s): LDR1480 - SNOMED Code(s): 259213723 (2) Abdominal pain Current Visit: Yes Status: Acute Code(s): R10.9 - UNSPECIFIED ABDOMINAL PAIN SNOMED Code(s): 80092816 (3) Cholecystitis Narrative/Plan: The patient underwent cholecystectomy yesterday with reported cholecystitis. Current Visit: Yes Status: Acute Code(s): K81.9 - CHOLECYSTITIS, UNSPECIFIED SNOMED Code(s): 56257109 Plan: 1. Continue symptomatic in spite of care 2. Diaper Gen. surgery 3. Antiemetics as needed 4. Protonix 40 mg daily 5. Patient to follow-up with gastroenterology as previously scheduled in [place] 6. Patient is clear from gastroenterology for discharge Thank you for this consultation, we will sign off at this time. Dr. Ahmet Tapia I agree with the dictator's note, documented as a scribe by Josette Gonzalez.
[2023-03-06 21:32] VITALS: RESP 18
[2023-03-06] MEDS: oxyCODONE-APAP 5-325MG 1 EACH TAB PO PRN (21:41)
[2023-03-06] MEDS: traZODone HCL 100 MG TAB PO SCH (21:41)
[2023-03-06] MEDS: DOXAZOSIN 1 MG TAB PO SCH (21:41)
[2023-03-06] MEDS: LACTULOSE 20 GM/30 ML CUP PO PRN (21:49)
[2023-03-07] MEDS: oxyCODONE-APAP 5-325MG 1 EACH TAB PO PRN (06:09)
[2023-03-07] MEDS: LACTULOSE 20 GM/30 ML CUP PO PRN (06:15)
[2023-03-07] MEDS: LORATADINE 10 MG TAB PO SCH (08:13)
[2023-03-07] MEDS: amLODIPine 5 MG TAB PO SCH (08:13)
[2023-03-07] MEDS: PANTOPRAZOLE 40 MG/10 ML VIAL IV SCH (08:13)
[2023-03-07 08:44] VITALS: BP 116/69; PULSE 48; TEMP 97.6
[2023-03-07 08:53] LABS: BUN/Creat Ratio 10.08 Ratio (12.00-20.00); Blood Urea Nitrogen 12.1 mg/dL (9.0-27.0); Calcium 9.4 mg/dL (8.7-10.3); Carbon Dioxide 24.1 mmol/L (21.6-31.8); Chloride 106 mmol/L (96-109); Glucose 108 mg/dL (70-110); HCT 50.5 % (39.6-50.0); MCH 25.9 pg (27.0-32.0); MCHC 31.7 g/dL (32.0-37.0); MCV 81.8 FL (80.0-97.0); Mean Platelet Volume 10.5 FL (9.5-12.2); NRBC Per 100 WBC 0 X 10*3/uL (0.00-0.01); Platelet Count 317 X 10*3/uL (140-440); Potassium 4.2 mmol/L (3.5-5.5); RBC 6.17 X 10*6/uL (4.40-5.60); Sodium 141 mmol/L (135-145); WBC 8.88 X 10*3/uL (4.50-10.00)
--- NOTE | 2023-03-07 09:33 | P.PN ---
Subjective Progress Note Date: 03/07/23 CHIEF COMPLAINT: Acute cholecystitis HISTORY OF PRESENT ILLNESS: Patient status post laparoscopic cholecystectomy. Pain is controlled. He is tolerating diet. He had a bowel movement. He is up and ambulating. Afebrile. WBC 8.88 Hgb 16 platelets 317 PHYSICAL EXAM: VITAL SIGNS: Reviewed. GENERAL: Well-developed in no acute distress. ABDOMEN: Soft. Nondistended. Incision sites clean dry and intact NEUROLOGIC: Alert and oriented. Cranial nerves II through XII grossly intact. ASSESSMENT: 1. Acute cholecystitis status post laparoscopic cholecystectomy PLAN: -Patient can be discharged from surgical standpoint -Patient can shower daily -Continue regular diet -Continue patient's home pain medication Physician Chiropractic Care note has been reviewed by physician. Signing provider agrees with the documented findings, assessment, and plan of care. Objective - Vital Signs Vital signs: Vital Signs Temp 97.6 F 03/07/23 07:44 Pulse 48 L 03/07/23 07:44 Resp 18 03/07/23 07:44 BP 116/69 03/07/23 07:44 Pulse Ox 98 03/07/23 07:44 FiO2 Intake & Output 03/06/23 03/07/23 03/07/23 18:59 06:59 18:59 Other: # Voids 2 1 - Labs CBC & Chem 7: 03/07/23 06:21 03/07/23 06:21 Labs: Abnormal Lab Results - Last 24 Hours (Table) 03/07/23 03/07/23 Range/Units 06:21 06:21 RBC 6.17 H (4.40-5.60) X 10*6/uL Hct 50.5 H (39.6-50.0) % MCH 25.9 L (27.0-32.0) pg MCHC 31.7 L (32.0-37.0) g/dL RDW 20.0 H (11.5-14.5) % BUN/Creatinine Ratio 10.08 L (12.00-20.00) Ratio
--- NOTE | 2023-03-07 11:29 | P.DS ---
Providers Date of admission: 03/05/23 02:04 Expected date of discharge: 03/07/23 Attending physician: Suzi Claire Consults: 03/05/23 09:17 Consult Physician Routine Consulting Provider: Benjamin Love Consult Reason/Comments: Abdominal pain distended gallbladder Do you want consulting provider notified?: Yes Primary care physician: Grant Perez MD Hospital Course: * 58-year-old gentleman with past medical history significant for alcohol use disorder, history of pancreatitis presents to the emergency department with complains of severe abdominal pain, nausea, vomiting. Patient had intractable vomiting and was transferred from an outside facility for uncontrolled abdominal discomfort secondary to pancreatitis. Workup done at outside hospital included serum chemistry as well as CT abdomen pelvis which showed pancreatic pseudocyst which was unchanged. * Workup obtained in ER included serum chemistry which shows sodium 138 potassium 4 BUNs 12 creatinine 0.97 liver chemistry AST 48 DT 31 alkaline phosphatase 164 * Ultrasound abdomen was obtained which showed dilated intrahepatic duct, distended gallbladder with biliary debris noted, Oneill's sign negative * While in ER patient was given 1 dose of morphine, Zofran as well as 1 L fluid bolus * Patient admitted to medical floor with consultation from general surgery as well as gastroenterology * 03/06/2023: Patient seen and evaluated bedside, patient is postoperative day one status post cholecystectomy, patient does complain of abdominal distention, we'll continue to monitor for another 24 hours potential discharge home by tomorrow follow up on CBC and basic metabolic panel * 03/07/2023: Patient seen and evaluated bedside, patient alert and oriented 4, denies of dizziness, heart rate within normal limits, heart rate checked. Patient able to tolerate diet without difficulty, CBC and basic metabolic panel reviewed REVIEW OF SYSTEMS: Nausea, vomiting resolved, abdominal pain postoperative pain resolved CONSTITUTIONAL: No fever, no malaise, no fatigue. HEENT: No recent visual problems or hearing problems. Denied any sore throat. CARDIOVASCULAR: No chest pain, orthopnea, PND, no palpitations, no syncope. PULMONARY: No shortness of breath, no cough, no hemoptysis. GASTROINTESTINAL: Nausea, vomiting, abdominal pain resolved NEUROLOGICAL: No headaches, no weakness, no numbness. HEMATOLOGICAL: Denies any bleeding or petechiae. GENITOURINARY: Denies any burning micturition, frequency, or urgency. MUSCULOSKELETAL/RHEUMATOLOGICAL: Denies any joint pain, swelling, or any muscle pain. ENDOCRINE: Denies any polyuria or polydipsia. The rest of the 14-point review of systems is negative. PHYSICAL EXAMINATION: GENERAL: The patient is alert and oriented x3, appearing well, HEENT: Pupils are round and equally reacting to light. EOMI. CARDIOVASCULAR: S1 and S2 present. No murmurs, rubs, or gallops. PULMONARY: Chest is clear to auscultation, no wheezing or crackles. ABDOMEN: Status post cholecystectomy, incision is intact, abdomen is soft nontender MUSCULOSKELETAL: No joint swelling or deformity. EXTREMITIES: No cyanosis, clubbing, or pedal edema. NEUROLOGICAL: Gross neurological examination did not reveal any focal deficits. SKIN: No rashes. Assessment: Assessment and plan * acute pancreatitis on chronic pancreatitis with pancreatic pseudocyst * Intractable nausea/vomiting with acute cholecystitis status post cholecystectomy * Alcohol use disorder * Hypertension * Gastroesophageal reflux disease * In regards to acute pancreatitis/acute cholecystitis, seen by general surgery status post cholecystectomy POD 2 , continue low-fat diet diet, cleared for discharge by general surgery * In regards to hypertension continue amlodipine * In regards to alcohol use, no suspicion forward all patient has not had a drink in 10 months * Patient does have pain meds at home hence continue current home regimen Patient Condition at Discharge: Fair Plan - Discharge Summary Discharge Rx Participant: Yes New Discharge Prescriptions: Continue Doxazosin [Cardura] 1 mg PO HS Ondansetron Odt [Zofran ODT] 4 mg PO Q8HR PRN PRN Reason: Nausea Loratadine [Claritin] 10 mg PO DAILY HYDROcodone/APAP 7.5-325MG [[place] 7.5-325] 1 tab PO Q6HR PRN PRN Reason: Pain Lactulose [Cephulac] 20 gm PO TID PRN PRN Reason: Constipation traZODone HCL 100 mg PO HS Pantoprazole [Protonix] 40 mg PO DAILY fentaNYL 50MCG/HR PATCH [Duragesic 50MCG/HR] 1 patch TRANSDERM Q72H amLODIPine [Norvasc] 5 mg PO DAILY Discharge Medication List Doxazosin [Cardura] 1 mg PO HS 03/05/23 [History] HYDROcodone/APAP 7.5-325MG [[place]et 7.5-325] 1 tab PO Q6HR PRN 03/05/23 [History] Lactulose [Cephulac] 20 gm PO TID PRN 03/05/23 [History] Loratadine [Claritin] 10 mg PO DAILY 03/05/23 [History] Ondansetron Odt [Zofran ODT] 4 mg PO Q8HR PRN 03/05/23 [History] Pantoprazole [Protonix] 40 mg PO DAILY 03/05/23 [History] amLODIPine [Norvasc] 5 mg PO DAILY 03/05/23 [History] fentaNYL 50MCG/HR PATCH [Duragesic 50MCG/HR] 1 patch TRANSDERM Q72H 03/05/23 [History] traZODone HCL 100 mg PO HS 03/05/23 [History] Follow up Appointment(s)/Referral(s): Grant Perez MD [Primary Care Provider] - 1-2 days Benjamin Love MD [STAFF PHYSICIAN] - 1 Week Discharge Disposition: HOME SELF-CARE
== END 2023-03-07 12:35 | disposition home or self-care (01) ==
LOC: EC 01:21 → 6NMEDSUR 02:04 → 4SSUR 09:16
PROVIDERS: ADMIT Hospitalist; ATTEND Hospitalist
DX: K80.10 Calculus of gallbladder with chronic cholecystitis without obstruction (principal); K86.3 Pseudocyst of pancreas; K82.8 Other specified diseases of gallbladder; K86.0 Alcohol-induced chronic pancreatitis; F10.20 Alcohol dependence, uncomplicated; I10 Essential (primary) hypertension; K21.9 Gastro-esophageal reflux disease without esophagitis; F17.200 Nicotine dependence, unspecified, uncomplicated; Z85.118 Personal history of other malignant neoplasm of bronchus and lung; Z85.528 Personal history of other malignant neoplasm of kidney; Z85.828 Personal history of other malignant neoplasm of skin; Z90.5 Acquired absence of kidney; Z92.21 Personal history of antineoplastic chemotherapy; Z79.899 Other long term (current) drug therapy
CPT/HCPCS: 96376 ×4; 96361 ×6; 96375 ×2; 96374; 99285; 93005; 88304; 83880; 80053 ×2; 80048; 83605; 83690 ×2; 83735 ×2; 84100 ×2; 84484; 85025 ×2; 85027; 85610; 85730; 76705; 47562; G0378 ×4; J0330; J2270 ×2; J1200; J1644; J1100; J2710; J2765; J0690; J2405 ×2; J2001; J3010; J3490; J1170 ×2; J2704; C9113 ×3; J0665